=== PATIENT | male | born 1985 | race Caucasian/White ===

== ENCOUNTER 2017-04-06 21:42 | Emergency (ER) | payer SELFPAY ==
[~2017-04-06] VITALS: Ht 182.9 cm; Wt 87.3 kg
[~2017-04-06 21:42] MED LIST: LORTAB 5/500 501 TAB PO; NO HOME MEDICATIONS
[2017-04-06 21:49] VITALS: BP 126/75
[2017-04-06] MEDS ORDERED: PERCOCET 325 MG1 TA2 PO (23:53)
[2017-04-06] MEDS ORDERED: AMOXICILLIN 8751 TAB PO (23:53)
[2017-04-06] MEDS ORDERED: CRUTCHES MC (23:53)
[2017-04-07 00:40] VITALS: PULSE 80
== END 2017-04-07 00:40 | disposition home or self-care (01) ==
LOC: COL.ER 21:42
DX: S81.811A Laceration without foreign body, right lower leg, initial encounter (principal); Z23 Encounter for immunization; V28.0XXA Motorcycle driver injured in noncollision transport accident in nontraffic accident, initial encounter; Y92.410 Unspecified street and highway as the place of occurrence of the external cause
CPT/HCPCS: J2270